=== PATIENT | female | born 1960 | race Caucasian/White ===

== ENCOUNTER 2024-05-20 10:34 | Outpatient (AMB) | payer BC, SELFPAY ==
--- NOTE | 2024-05-20 10:39 | A.OFFPC_ITS ---
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 Power Required: No Allergies shrimp Allergy (Unknown, Verified 05/20/24 10:44) Unknown Tobacco use date assessed: 05/20/24 Fall risk assessment: No Falls in past year Last assessed Fall Risk: 05/20/24 Dental Screening Dental Screen Date: 05/20/24 Did you have a dental visit in the last 12 months?: Yes Did you have a dental problem in the last 6 months where you did not have access to dental care?: No Was dental information given to patient?: Patient has dentist HPI HPI Comments History of Present Illness Details This is a 64-year-old female presenting to [facility]. She saw me at [facility]. Her records transfer pending. She is doing very well. She is still working at the [employer]. Patient is a . 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 She lives with 3 adult children, 3 grandchildren and many animals. She is not currently exercising or following a diet though she has a weight leora chers duke still. She is maintaining her weight loss of 40 lb on Wegovy. She denies side effects on the medication. She has decided to recommit to this because she wants to lose an additional 15 lb. ROS: Constitutional: No unexplained weight loss, fever, chills, fatigue or night sweats.. Respiratory: No shortness of breath Cardiovascular: No chest pain Endocrine: No cold or heat intolerance. No polyuria or polydipsia. Psychiatric: No depression or anxiety. No SI/HI. Physical exam: Constitutional: Alert, in no distress. Neck: Supple, Full range of motion. No lymphadenopathy. Respiratory: Clear to auscultation. Cardiovascular: S1 S2 regular. No murmurs. 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 1. Little interest or pleasure in doing things: not at all 2. Feeling down, depressed, or hopeless: not at all 3. Trouble falling or staying asleep, or sleeping too much: not at all 4. Feeling tired or having little energy: not at all 5. Poor appetite or overeating: not at all 6. Feeling bad about yourself - or that you are a failure or have let yourself or your family down: not at all 7. Trouble concentrating on things, such as reading the newspaper or watching television: not at all 8. Moving or speaking so slowly that other people could have noticed. Or the opposite - being so fidgety or restless that you have been moving around a lot more than usual: not at all 9. Thoughts that you would be better off or of hurting yourself in some way: not at all Total score: 0 Source: Developed by Drs. Zack Ayala, Chen Martinez, Rah Jonas and colleagues, with an educational javier from [employer]. Thrive Questionnaire I am a: Patient What is your living situation today?: I have a steady place to live Within the past 12 months, did the food you bought not last and you didn't have the money to get more?: Never true Within the past 12 months, did you worry whether your food would run out before you got money to buy more?: Never true Do you have trouble paying for medicines?: No Do you have trouble getting transportation to medical appointments?: No Do you have trouble paying your heating and electricity bill?: No Do you have trouble taking care of your child, family member or friend?: No Do you have trouble with day-to-day activities such as bathing, preparing meals, shopping, managing finances, etc.?: No Are you currently unemployed and looking for a job?: No Are you interested in more education?: No Please select the resources that you would like help with: None Currently or been in a relationship where the following occur: No concerns reported THRIVE Score: 0 AUDIT C Alcohol Use Questionnaire (AUDIT-C) 1. How often do you have a drink containing alcohol?: 2-3 times a week 2. How many drinks containing alcohol do you have on a typical day when you are drinking?: 1 or 2 3. How often do you have six or more drinks on one occasion?: Never Total Score: 3 VIRAL-7 AMB Questionnaire VIRAL-7 Feeling nervous, anxious, or on edge: 0 = Not at all Not being able to stop or control worryin = Not at all Worrying too much about different things: 0 = Not at all Trouble relaxin = Not at all Being so restless that it is hard to sit still: 0 = Not at all Becoming easily annoyed or irritable: 0 = Not at all Feeling afraid as if something awful might happen: 0 = Not at all Total VIRAL-7 score (0-4 normal; 5-9 mild; 10-14 moderate; 15-21 severe): 0 Source: Developed by Drs. Zack Ayala, Chen Martinez, Rah Jonas and colleagues, with an educational javier from [employer]. Physical exam (Primary Care) Vital Signs: Last Vital Signs Pulse 73 05/20/24 10:49 Resp 14 05/20/24 10:49 BP 128/66 05/20/24 10:49 Pulse Ox 99 05/20/24 10:49 Oxygen Delivery Method Room Air 05/20/24 10:49 BMI result Body Mass Index 30.2 Tobacco/Smoking Status: Tobacco use Status Tobacco use date assessed 05/20/24 05/20/24 10:51 Patient Tobacco Use Status Former Tobacco user 05/20/24 10:51 e-Cigarette/Vaping Use Never Used 05/20/24 10:51 PHQ-9: PHQ-9 Score PHQ-9: Total score 0 05/20/24 11:07 Currently or been in a relationship where the following occur: No concerns reported Coding Level of Care Code Est Pt Level 3 (43702) Complex EM visit Add On G2211 Diagnoses Obesity, class 1 E66.811 Assessment & Plan Assessment & Plan (1) Obesity, class 1: Code(s): E66.811 - Obesity, class 1 Category: Medical Plan: I recommended the patient exercise at least 30 minutes 5 days per week. She should follow a low carbohydrate, low sugar diet. She is going to start following weight watchers again. Avoid alcohol. Continue Wegovy 2.4 mg weekly. She denies side effects on this. If she is doing lifestyle modifications and does not continue to lose weight we will consider switching to Zepbound. She will have routine labs drawn and follow up for a physical exam and re- evaluation for weight management in 8 weeks. Orders: Orders Complete Blood Count no Diff Today E66.9 - Obesity, unspecified, Z13.6 - Enc ounter for screening for cardiovascular disorders TSH reflex Free T4 Today E66.9 - Obesity, unspecified, Z13.6 - Encounter for screening for cardiovascular disorders Lipid Panel Today E66.9 - Obesity, unspecified, Z13.6 - Encounter for screening for cardiovascular disorders Comprehensive Met. Panel Today E66.9 - Obesity, unspecified, Z13.6 - Encounter for screening for cardiovascular disorders Medications: New epinephrine (EpiPen) for 2 doses. Call 911 after administration. 0.3 mg (0.3 mL) IM ONCE PRN 2 ea 0RF anaphylaxis
[2024-05-20 10:49] VITALS: BP 128/66; PULSE 73; RESP 14; O2SAT 99; BMI 30.2
== END 2024-05-20 11:26 | disposition home or self-care (01) ==
PROVIDERS: PCP Physician Assistant Medical; Visit Provider Physician Assistant Medical
DX: E66.811 Obesity, class 1 (principal); Z68.30 Body mass index [BMI] 30.0-30.9, adult

== ENCOUNTER → 2024-05-20 10:34 | Outpatient (BNVA) | payer BC, SELFPAY | PROVIDERS: PCP Physician Assistant Medical; Visit Provider Physician Assistant Medical ==

== ENCOUNTER 2024-06-25 10:41 | Outpatient (REF) | payer BC, SELFPAY ==
[2024-06-25 14:19] LABS: Hematocrit 40.4 % (37.0-47.0); Hemoglobin 13.2 g/dl (12.0-16.0); Mean Corpuscular HGB Conc 32.7 g/dl (31.0-35.0); Mean Corpuscular Volume 88.8 fL (80.0-98.0); Platelet Count 199 X10*3/uL (160-400); Red Blood Count 4.55 X10*6/uL (4.20-5.50); Red Cell Distribution Width 13.2 % (11.0-16.0); White Blood Count 4.3 X10*3/uL (4.8-10.8)
[2024-06-25 14:52] LABS: Alanine Aminotransferase 15 U/L (0-31); Albumin Level 4.1 g/dL (3.5-5.0); Alkaline Phosphatase 60 U/L (39-117); Anion Gap 11 (12-20); Aspartate Amino Transferase 18 U/L (5-31); Bilirubin Total 0.7 mg/dL (0.0-1.0); Blood Urea Nitrogen 17 mg/dL (9-16); Calcium 9.1 mg/dL (8.4-10.2); Carbon Dioxide 27 mmol/L (22-29); Chloride 107 mmol/L (96-108); Cholesterol 177 mg/dL (<200); Estimated Glomerular Filt Rate > 60; Glucose Random 83 mg/dL (60-115); HDL Cholesterol 61 mg/dL (>40); LDL Cholesterol Calculated 104 mg/dL (<100); Potassium 4.1 mmol/L (3.3-5.1); Sodium 141 mmol/L (135-145); Total Protein 7.2 g/dL (6.5-8.0); Triglycerides 64 mg/dL (<150)
[2024-06-25 14:54] LABS: TSH reflex Free T4 0.95 uIU/mL (0.32-4.0)
== END 2024-06-25 10:42 | disposition home or self-care (01) ==
LOC: HO.WFDLDS 10:41
PROVIDERS: Visit Provider Physician Assistant Medical
DX: E66.9 Obesity, unspecified (principal); Z13.6 Encounter for screening for cardiovascular disorders
CPT/HCPCS: 36415; 80053; 80061; 84443; 85027

== ENCOUNTER 2024-07-12 08:35 | Outpatient (AMB) | payer BC, SELFPAY ==
--- NOTE | 2024-07-12 08:39 | A.OFFPC_ITS ---
Vital Signs 07/12/24 08:45 Height 5 ft 7 in Weight 175 lb 6 oz BMI 27.5 BP 112/68 Blood Pressure Location Rt brachial Position Sitting Respiration 14 Pulse 81 Pulse Source Pulse Oximeter Pulse Oximetry (%) 98 Oxygen Delivery Method Room Air Intake Visit Reasons: annual physical exam Intake Note: Ronda presents in the office today for her annual physical. 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 She will sign a release for her medical records from [facility]. She is doing very well. She is still working at the [employer]. Patient is a . 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 She lives with 3 adult children, 3 grandchildren and many animals. She started to do the weight watchers duke again. She is going to start exercising when the weather improves. She is maintaining her weight loss of 40 lb on Wegovy. She denies side effects on the medication. She had her last colonoscopy at [place]. She doesn't recall the date, but it was normal. Record requested. Mammogram ordered. Bone density exam ordered. She saw [place] [facility] last Summer for her skin exam. We reviewed her recent labs. Her white blood cell count was mildly decreased. She will repeat this blood test at the lab in early August. No recent infections, fatigue or unexplained weight loss. She is going to update her TD vaccine and inquire about RSV vaccine at her pharmacy. ROS: Constitutional: No unexplained weight loss, fever, chills, fatigue or night sweats. Eyes: No vision changes, blurry vision, double vision, eye pain, eye redness, eye discharge. ENT: No hearing loss, sneezing, congestion, runny nose or sore throat. Respiratory: No shortness of breath, cough or sputum production. Cardiovascular: No chest pain, chest pressure or chest discomfort. No palpitations or pedal edema. Gastrointestinal: No anorexia, nausea, vomiting or diarrhea. No abdominal pain or blood in stool. Genitourinary: No dysuria, hematuria, urinary frequency. Neurologic: No headache, dizziness, syncope, unilateral weakness, ataxia, numbness or tingling in the extremities. Musculoskeletal: No muscle pain, back pain, joint pain or swelling. Hematologic/Lymphatics: No bleeding or bruising. No painful lymph nodes. Skin: No rash or itching. Endocrine: No cold or heat intolerance. No polyuria or polydipsia. Psychiatric: No depression or anxiety. No SI/HI. Physical exam: Constitutional: Alert, in no distress. Head: Normocephalic. Eyes: Pupils are equal, round and reactive to light. Extraocular muscles intact. Ear, Nose and Throat: Canals clear. TMs normal. Normal nasal mucosa. No nasal discharge. No oral lesions. Neck: Supple, Full range of motion. No lymphadenopathy. No palpable thyroid masses. Respiratory: Clear to auscultation. Cardiovascular: S1 S2 regular. No murmurs. No carotid bruits. Gastrointestinal: Abdomen soft, non-tender, non-distended. Normal bowel sounds. No palpable masses. Neurologic: No focal neurological deficits. Symmetric patellar reflexes. Moves all extremities spontaneously. Sensation intact bilaterally. Skin: No rashes Musculoskeletal: No gross deformities. Normal range of motion. Extremities: Warm and well perfused. No clubbing, cyanosis or edema and intact peripheral pulses bilaterally. Psychiatric: Normal mood and affect ON LICENSE OF [facility] Medical History (Updated 07/12/24 @ 13:55 by LATISHA Pacheco) Routine physical examination Decreased white blood cell count Obesity, class 1 Bunion Family History Paternal Grandmother Breast cancer Mother Lung cancer Father Lung cancer Other FH: mental illness Substance abuse Social History (Updated 07/12/24 @ 08:43 by Payton Perez MA) Housing: House Alcohol intake: current Patient Tobacco Use Status: Former Tobacco user Cigarette Packs Per Day: 1 Years Smoked: 17 e-Cigarette/Vaping Use: Never Used service: No Current occupational status: employed 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 1. Little interest or pleasure in doing things: not at all 2. Feeling down, depressed, or hopeless: not at all 3. Trouble falling or staying asleep, or sleeping too much: not at all 4. Feeling tired or having little energy: not at all 5. Poor appetite or overeating: not at all 6. Feeling bad about yourself - or that you are a failure or have let yourself or your family down: not at all 7. Trouble concentrating on things, such as reading the newspaper or watching television: not at all 8. Moving or speaking so slowly that other people could have noticed. Or the opposite - being so fidgety or restless that you have been moving around a lot more than usual: not at all 9. Thoughts that you would be better off or of hurting yourself in some way: not at all Total score: 0 Depression Screening Interpretation: Negative Depression Screening Done: Yes 50938 - PHQ-9 Billing: Patient declined-do not bill Source: Developed by Drs. Zack Ayala, Chen Martinez, Rah Jonas and colleagues, with an educational javier from [employer]. Thrive Questionnaire Date Thrive assessed: 07/12/24 I am a: Patient What is your living situation today?: I have a steady place to live Within the past 12 months, did the food you bought not last and you didn't have the money to get more?: Never true Within the past 12 months, did you worry whether your food would run out before you got money to buy more?: Never true Do you have trouble paying for medicines?: No Do you have trouble getting transportation to medical appointments?: No Do you have trouble paying your heating and electricity bill?: No Do you have trouble taking care of your child, family member or friend?: No Do you have trouble with day-to-day activities such as bathing, preparing meals, shopping, managing finances, etc.?: No Are you currently unemployed and looking for a job?: No Are you interested in more education?: No Please select the resources that you would like help with: None Currently or been in a relationship where the following occur: No concerns reported THRIVE Score: 0 VIRAL-7 AMB Questionnaire VIRAL-7 Date VIRAL - 7 assessed: 07/12/24 Feeling nervous, anxious, or on edge: 1 = Several days Not being able to stop or control worryin = Not at all Worrying too much about different things: 0 = Not at all Trouble relaxin = Not at all Being so restless that it is hard to sit still: 0 = Not at all Becoming easily annoyed or irritable: 0 = Not at all Feeling afraid as if something awful might happen: 0 = Not at all Total VIRAL-7 score (0-4 normal; 5-9 mild; 10-14 moderate; 15-21 severe): 1 Source: Developed by Drs. Zack Ayala, Chen Martinez, Rah Jonas and colleagues, with an educational javier from [employer]. VIRAL-7 Assessment Billing VIRAL-7 Assessment Tool: VIRAL-7 Assessment 76981 Physical exam (Primary Care) Vital Signs: Last Vital Signs Pulse 81 07/12/24 08:45 Resp 14 07/12/24 08:45 BP 112/68 07/12/24 08:45 Pulse Ox 98 07/12/24 08:45 Oxygen Delivery Method Room Air 07/12/24 08:45 BMI result Body Mass Index 27.5 Tobacco/Smoking Status: Tobacco use Status Tobacco use date assessed 07/12/24 07/12/24 08:47 Patient Tobacco Use Status Former Tobacco user 07/12/24 08:43 e-Cigarette/Vaping Use Never Used 07/12/24 08:43 Depression Screening Interpretation: Negative Thrive Assessment: Date of Thrive Assessment Date Thrive assessed 07/12/24 07/12/24 08:47 Currently or been in a relationship where the following occur: No concerns reported Coding Level of Care Code Est Pt Prev Care >65y(90553) Diagnoses Decreased white blood cell count D72.819 Obesity, class 1 E66.811 Routine physical examination Z00.00 Additional Codes VIRAL-7 Assessment Billing - VIRAL-7 Assessment Tool: VIRAL-7 Assessment [id number] ([id number]) Assessment & Plan Assessment & Plan (1) Decreased white blood cell count: Code(s): D72.819 - Decreased white blood cell count, unspecified Category: Medical Plan: Repeat CBC with differential the 1st week of August. Written instructions given to the patient. Patient instructed to call if she develops signs and symptoms of infection which were reviewed today. (2) Obesity, class 1: Code(s): E66.811 - Obesity, class 1 Category: Medical Plan: Continue weight watchers duke, start exercising. Continue Wegovy. (3) Routine physical examination: Code(s): Z00.00 - Encounter for general adult medical examination without abnormal findings Category: Medical Plan: Patient is seen today for a routine physical. 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 Dexa scan ordered. - Nutritional and exercise counseling - Counseling of injury prevention including fire prevention, smoke alarms and seat belt usage - Screening for depression - Education about skin cancer - Recommendations about immunizations - Recommendation of an eye exam - Screening for substance abuse Plan Follow up in 6 months for a med check. Orders: Orders MM screening mammo BI Today Z12.31 - Encounter for screening mammogram for malignant neoplasm of breast XR DEXA axial skeleton Today E28.39 - Other primary ovarian failure Patient Instructions: Please have nonfasting lab test done the first of August. Please get tetanus immunization and ask about RSV at your pharmacy.
[2024-07-12 08:45] VITALS: BP 112/68; PULSE 81; RESP 14; O2SAT 98; BMI 27.5
== END 2024-07-12 09:16 | disposition home or self-care (01) ==
LOC: HO.HMCFM 08:36
PROVIDERS: PCP Physician Assistant Medical; Visit Provider Physician Assistant Medical
DX: Z00.00 Encounter for general adult medical examination without abnormal findings (principal); D72.819 Decreased white blood cell count, unspecified; E66.811 Obesity, class 1; Z68.27 Body mass index [BMI] 27.0-27.9, adult

== ENCOUNTER → 2024-07-12 08:35 | Outpatient (BNVA) | payer BC, SELFPAY | PROVIDERS: PCP Physician Assistant Medical; Visit Provider Physician Assistant Medical | DX: Z00.00 Encounter for general adult medical examination without abnormal findings (principal); D72.819 Decreased white blood cell count, unspecified; E66.811 Obesity, class 1; Z68.27 Body mass index [BMI] 27.0-27.9, adult | CPT/HCPCS: 96127 ==

== ENCOUNTER 2024-09-08 12:33 | Outpatient (REF) | payer BC, SELFPAY ==
--- NOTE | ~2024-09-08 | MM_ITS ---
EXAMINATION: DXA BONE DENSITY AXIAL HISTORY: E28.39 - Other primary ovarian failure TECHNIQUE: Tujia Dual energy absorptiometry (DEXA) of the lumbar spine, total left hip, and femoral neck was performed. COMPARISON: There are no prior studies for comparison. FINDINGS: The bone mineral density of the lumbar spine is 1.098, corresponding to a T-score of -0.7, and a Z-score of 0.5. This is indicative of normal bone mineral density. The bone mineral density of the left total hip is 0.850, corresponding to a T-score of -1.3, and a Z-score of -0.3. This is indicative of osteopenia. The bone mineral density of the left femoral neck is 0.795, corresponding to a T-score of -1.7, and a Z-score of -0.5. This is indicative of osteopenia. FRACTURE RISK: The FRAX index suggests a risk of major osteoporotic fracture of 10.1%, and of hip fracture 1.4%. MM/XR DEXA axial skeleton IMPRESSION: Based on bone mineral density, and according to World Health Organization (WHO) criteria, the diagnosis is consistent with osteopenia. All bone density values are in grams per centimeter squared (g/cm2). Statistically, 68% of repeat scans fall within 1 SD (+/- 0.010 g/cm2 for AP spine L1-L4) and 1 SD (+/- 0.012 g/cm2 for femur total) FRAX is a trademark of the [employer] [facility] [employer], a World Health Organization (WHO) Collaborating Center. Electronically signed by: Zack Sage MD 09/08/2024 01:52 PM EDT
--- NOTE | ~2024-09-08 | MM_ITS ---
EXAMINATION: MM SCREENING DIGITAL BREAST TOMOSYNTHESIS, BILATERAL CLINICAL INFORMATION: Screening. Asymptomatic. COMPARISON: Mammography: Comparison is made with available priors TECHNIQUE: Digital breast mammography with tomosynthesis is performed in both the craniocaudal and mediolateral oblique views along with computer-aided detection (CAD). FINDINGS: There are scattered areas of fibroglandular density (ACR BI-RADS breast composition Category b). There are no significant masses, abnormal calcifications, or other abnormalities. MM/MM tomosynthesis screening BI IMPRESSION: No mammographic evidence of malignancy. ASSESSMENT: BI-RADS BI-RADS 1 - Negative RECOMMENDATION: Routine annual mammography screening. 1 year F/U This examination should not preclude the clinical evaluation of a suspicious palpable abnormality. This patient's information was entered into a reminder system with a target due date for their next mammogram. Electronically signed by: Radha Vincent DO 09/14/2024 12:58 PM EDT
== END 2024-09-08 12:34 | disposition home or self-care (01) ==
LOC: HO.MAMMO 12:33
PROVIDERS: PCP Physician Assistant Medical; Visit Provider Physician Assistant Medical
DX: Z12.31 Encounter for screening mammogram for malignant neoplasm of breast (principal); Z13.820 Encounter for screening for osteoporosis; E28.39 Other primary ovarian failure
CPT/HCPCS: 77063; 77067; 77080

== ENCOUNTER → 2024-09-08 13:00 | Outpatient (BNV) | payer BC, SELFPAY | PROVIDERS: PCP Physician Assistant Medical; Visit Provider Radiology Diagnostic Radiology | DX: E28.39 Other primary ovarian failure (principal) | CPT/HCPCS: 77080 ==

== ENCOUNTER 2025-01-10 08:44 | Outpatient (AMB) | payer BC, SELFPAY ==
--- NOTE | 2025-01-10 08:39 | A.OFFPC_ITS ---
Intake Visit Reasons: med follow up Intake Note: Ronda presents for a medication check in via telehealth. Allergies shrimp Allergy (Unknown, Verified 01/10/25 08:40) Unknown Medication List - Last Reconciled 01/10/25 by LATISHA Pacheco epinephrine (EpiPen) 0.3 mg (0.3 mL) IM ONCE PRN semaglutide (weight loss) (Wegovy) 2.4 mg (0.75 mL) subcut QWEEK Tobacco use date assessed: 01/10/25 Dental Screening Dental Screen Date: 01/10/25 Did you have a dental visit in the last 12 months?: Yes Did you have a dental problem in the last 6 months where you did not have access to dental care?: No Was dental information given to patient?: Patient has dentist HPI HPI Comments History of Present Illness Details This is a 64-year-old female presenting for a med check. She is doing the weight watchers [employer]. She meal plans. She is maintaining her weight loss on Wegovy 2.4 mg weekly. She is finishing 02/18/25. Her insurance will no longer cover it. She denies side effects on the medication. Reports she is 163.4 lb. Her white blood count cell count was mildly decreased and she needs to repeat this. She had COVID-19 a week or 2 ago. She fully recovered. She got her flu and COVID-19 vaccines. Colonoscopy due in 2029. ROS: Constitutional: No unexplained weight loss, fever, chills, fatigue or night sweats. Psychiatric: No depression or anxiety. No SI/HI. 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 Zack Ayala, Chen Martinez, Rah Jonas and colleagues, with an educational javier from [employer]. Physical exam (Primary Care) Tobacco/Smoking Status: Tobacco use Status Tobacco use date assessed 01/10/25 01/10/25 08:42 Patient Tobacco Use Status Former Tobacco user 01/10/25 08:42 e-Cigarette/Vaping Use Never Used 01/10/25 08:42 Thrive Assessment: Date of Thrive Assessment Date Thrive assessed 07/12/24 01/10/25 08:39 Telehealth Telehealth Telehealth Platform: Telephone Location of provider rendering services: practice address Location of patient: address on file Patient Identification confirmed using: Name, : Yes Telehealth method: voice only Patient verbally consented to treatment: Yes Patient verbally consented to billing insurance company: Yes Patient informed of any privacy concerns related to visit: Yes Minutes spent on Phone/Video with Pt.: 16 Coding Level of Care Code Tele Est Pt Level 3 ([id number]) Diagnoses Obesity, class 1 E66.811 Other decreased white blood cell (WBC) count D72.818 Leukopenia type: other Assessment & Plan Assessment & Plan (1) Obesity, class 1: Code(s): E66.811 - Obesity, class 1 Category: Medical Plan: She will continue lifestyle modifications. She will stop Wegovy in February. She cannot pay out of pocket. Monitor weight. (2) Decreased white blood cell count: Code(s): D72.819 - Decreased white blood cell count, unspecified Category: Medical Qualifiers: Leukopenia type: other Qualified Code(s): D72.818 - Other decreased white blood cell count Plan: Repeat CBC at lab. Plan Follow up in 6 months for a physical exam.
--- OUTSIDE RECORDS SUMMARY | 2025-01-10 09:27 | XMS_ITS ---
Author Name [facility] Organization Unknown Care Team Organization Name Specialty Phone Email Start Date End Da te [facility] Chanel Hernandez MD Primary Care 04/15/2022 11/24/2023 [facility] Termed, PROVIDER Primary Care 02/12/202211/05
== END 2025-01-10 09:24 | disposition home or self-care (01) ==
LOC: HO.HMCFM 08:44
PROVIDERS: PCP Physician Assistant Medical; Visit Provider Physician Assistant Medical
DX: D72.818 Other decreased white blood cell count (principal); E66.811 Obesity, class 1